=== PATIENT | female | born 1945 | race Two or more races ===

== ENCOUNTER 2021-09-28 14:44 | Emergency (ER) | payer OTHER ==
[~2021-09-28] VITALS: Ht 160 cm; Wt 53.1 kg
[2021-09-28] MEDS ORDERED: SYNTHROID88 MCG PO (14:55)
[2021-09-28] MEDS ORDERED: PREVACID30 M1 (14:55)
== END 2021-09-28 19:33 | disposition home or self-care (01) ==
LOC: ER 14:44
DX: R53.83 Other fatigue (principal)